=== PATIENT | male | born 1935 | race Caucasian/White ===

== ENCOUNTER → 2017-01-15 | Outpatient (CLI) | payer MEDICARE, BC ==
[~2017-01-15] MED LIST: ANUSOL1 SUPP PR; ASPIR-LOW81 MG PO; CIALIS10 MG PO; CIALIS5 MG PO; CIPRO500 MG PO; CIPROFLOXACIN500 M1 PO; COLACE50 MG PO; FLAGYL500 MG PO; FLORICAL TABLE1 EACH PO; FLUORITAB1 MG PO; GLUCOPHAGE500 MG PO; LASIX40 MG PO; LEVAQUIN500 MG PO; METRONIDAZOLE500 MG PO; MILLIPRED5 MG PO; PERCOCET 5/31 TABLET PO; PLAVIX75 MG PO; PREDNISONE10 MG PO; PROVENTIL,2.5 MG/3 M IH; SIMVASTATIN40 MG PO; SPIRIVA1 INHALATI IH; SYMBICORT60 INHALAT IH; ZOFRAN4 MG PO
== END | disposition home or self-care (01) ==
LOC: CDC 15:58
DX: Z01.810 Encounter for preprocedural cardiovascular examination (principal); R94.31 Abnormal electrocardiogram [ECG] [EKG]
CPT/HCPCS: 93000